=== PATIENT | female | born 1970 | race Two or more races ===

== ENCOUNTER 2020-12-09 20:13 | Emergency (ER) | payer OTHER ==
[~2020-12-09] VITALS: Ht 162.6 cm; Wt 65.5 kg
--- NOTE | 2020-12-09 20:44 | PHYS DOC ---
Past History Past Medical History: No Pertinent History Past Surgical History: No Surgical History Alcohol Use: None General Adult EDM: Chief Complaint: EYE PROBLEMS HPI: HPI: Patient is a 50-year-old female coming in for redness to her left eye starting 2 days ago. Patient states she got her Covid vaccine 3 days ago and was fine afterwards. States she does recall rubbing her eyes at night but denies any injury or chemicals in her eye. Does not wear contacts. Denies any vision changes, pain, tearing, discharge from her eye. That she otherwise been feeling well. Does not take any blood thinners. Review of Systems: Review of Systems: All other systems within normal limits except for as noted in the HPI Allergies: Allergies: Allergies Coded Allergies Type Severity Reaction Last Updated Verified No Known Allergies Allergy Unknown 12/09/20 Yes Physical Exam: PE: Constitutional: Well developed, well nourished, no acute distress, non-toxic appearance. [] HENT: Normocephalic, atraumatic, bilateral external ears normal, nose normal. [] Eyes: PERRLA, redness to medial right eye conjunctiva, no discharge. [] Neck: No rigidity, supple, no stridor. [] Cardiovascular: Regular rate and rhythm, brisk cap refill [] Lungs & Thorax: Non labored symmetric respirations, no tachypnea or respiratory distress [] Abdomen: Soft, nondistended. Skin: Warm, dry, no erythema, no rash. [] Back: Unremarkable Extremities: No deformities, range of motion grossly intact, no lower extremity edema [] Neurologic: Alert and oriented X 3, no focal deficits noted. [] Psychologic: Affect normal, judgement normal, mood normal. [] Current Patient Data: Vital Signs: Vital Signs Date Time Temp Pulse Resp B/P (MAP) Pulse Ox O2 Delivery O2 Flow Rate FiO2 12/09/20 20:25 98.6 71 16 138/81 (100) 100 Room Air EKG: EKG: [] Radiology/Procedures: Radiology/Procedures: [] Heart Score: C/O Chest Pain: N/A Risk Factors: Risk Factors: DM, Current or recent (<one month) smoker, HTN, HLP, family history of CAD, obesity. Risk Scores: Score 0 - 3: 2.5% MACE over next 6 weeks - Discharge Home Score 4 - 6: 20.3% MACE over next 6 weeks - Admit for Clinical Observation Score 7 - 10: 72.7% MACE over next 6 weeks - Early Invasive Strategies Course & Med Decision Making: Course & Med Decision Making Pertinent Labs and Imaging studies reviewed. (See chart for details) [] Dragon Disclaimer: Dragon Disclaimer: This electronic medical record was generated, in whole or in part, using a voice recognition dictation system. Departure Departure: Impression: Primary Impression: Subconjunctival hemorrhage of right eye Disposition: 01 DC HOME SELF CARE/HOMELESS Condition: STABLE Referrals: [facility] Patient Instructions: Subconjunctival Hemorrhage TOI CH MD Dec 09, 2020 20:44
[2020-12-09 20:55] VITALS: BP 128/78
== END 2020-12-09 20:55 | disposition home or self-care (01) ==
LOC: ER 20:13
DX: H11.31 Conjunctival hemorrhage, right eye (principal)
CPT/HCPCS: 99281